=== PATIENT | male | born 1950 | race Caucasian/White ===

== ENCOUNTER 2017-02-03 13:08 | Emergency (ER) | payer OTHER, MEDICAID ==
[~2017-02-03] VITALS: Ht 172.7 cm; Wt 72.6 kg
[~2017-02-03 13:08] MED LIST: ALPR0.5T PO; AMLO5TAB2 PO; CARV25TA55 PO; CLON0.3T PO; DOXY100C41 PO; FURO20TA3 PO; GLYB5TAB8 PO; LEV500T GT; LEVO25TA6 PO; LISI-646 PO; OXY20CRT PO; POTA-167 PO; PREG100C PO; SIMV-8 PO
[2017-02-03] MEDS ORDERED: SODIUM CHLORIDE 0.9% 1,000 ML IV ONE (13:15)
[2017-02-03 13:52] LABS: Basophils # (auto) 0 uL; Basophils % (auto) 0.3 % (0.0-2.0); Eosinophils # (auto) 0.2 uL; Hematocrit 39.2 % (41.0-53.0); Lymphocytes # (auto) 0.9 uL; Lymphocytes % (auto) 18.8 % (10.0-50.0); Mean Corpuscular Hemoglobin 30.6 pg (28.0-32.0); Mean Corpuscular Hgb Conc. 35.6 g/dL (32.0-36.0); Mean Corpuscular Volume 85.9 fL (80.0-100.0); Mean Platelet Volume 8.4 fL (6.9-10.8); Monocytes # (auto) 0.4 uL; Monocytes % (auto) 8.3 % (0.0-12.0); Neutrophils # (auto) 3.3 uL; Neutrophils % (auto) 68.6 % (37.0-80.0); Nucleated Red Blood Cells % 0.2 %; Platelet Count (auto) 149 10^3/uL (140-450); Red Cell Distribution Width 14.8 % (11.8-14.3); White Blood Cell 4.8 10^3/uL (4.4-10.8)
[2017-02-03 14:07] LABS: INR 0.98 (0.9-1.15); Partial Thromboplastin Time 29.2 sec (22.64-33.71); Prothrombin Time 10.7 sec (9.37-12.3)
[2017-02-03 14:16] LABS: Albumin 4.2 g/dL (3.4-5.0); Alkaline Phosphatase 75 U/L (45-117); Anion Gap 7 (5-15); Aspartate Aminotransferase 16 U/L (15-37); BUN/Creatinine Ratio 14.3; Bilirubin, Total 0.9 mg/dL (0.2-1.0); Blood Urea Nitrogen 13 mg/dL (7-18); Calcium 9.3 mg/dL (8.5-10.1); Carbon Dioxide 25 mmol/L (21-32); Chloride 104 mmol/L (98-107); GFR African American 107 mL/min; GFR Non-African American 88 mL/min; Glucose 97 mg/dL (74-106); Potassium 4.1 mmol/L (3.5-5.1); Sodium 136 mmol/L (136-145); Total Protein 7.9 g/dL (6.4-8.2)
[2017-02-03 14:35] LABS: B-Type Natriuretic Peptide 60.88 pg/mL (0-100)
[2017-02-03 15:22] LABS: Temperature: 24.3 C (20.0-25.0)
[2017-02-03 16:19] VITALS: BP 134/94
[2017-02-03 16:43] LABS: Urine Bilirubin Negative (Negative); Urine Blood Negative /uL (Negative); Urine Color Yellow (Yellow); Urine Glucose Normal (Normal); Urine Ketone Negative (Negative); Urine Nitrite Negative (Negative); Urine RBC <1 /hpf (0 - 3); Urine Squamous Epithelial Cell FEW /hpf (<5); Urine Urobilinogen Normal (Negative)
== END 2017-02-03 18:05 | disposition home or self-care (01) ==
LOC: EDBD 13:08 → ER 13:08
DX: K40.90 Unilateral inguinal hernia, without obstruction or gangrene, not specified as recurrent (principal); E11.22 Type 2 diabetes mellitus with diabetic chronic kidney disease; N18.9 Chronic kidney disease, unspecified; I50.9 Heart failure, unspecified; Z95.0 Presence of cardiac pacemaker; Z88.0 Allergy status to penicillin; Z79.899 Other long term (current) drug therapy
CPT/HCPCS: 36415; 71010; 74176; 76870; 80053; 81001; 83880; 84484; 85025; 85610; 85730; 96360; 99285; J7030

== ENCOUNTER 2021-02-05 08:00 | Inpatient (IN) | payer OTHER, MEDICAID ==
[~2021-02-05] VITALS: Ht 182.9 cm; Wt 99.3 kg
[~2021-02-05 08:00] MED LIST changes: -ALPR0.5T PO; -AMLO5TAB2 PO; +DOXY-340 PO; -DOXY100C41 PO; -GLYB5TAB8 PO; -LISI-646 PO
[2021-02-05] MEDS ORDERED: BUPIVACAINE W/ EPINEPH 0.25% INJ 50ML MDV ONE (08:31)
[2021-02-05] MEDS ORDERED: TRANEXAMIC ACID 20 ML ONE (08:31)
[2021-02-05] MEDS ORDERED: MORPHINE SULF PF 2 MG/2 ML SYRG ONE (08:32)
[2021-02-05] MEDS ORDERED: KETOROLAC TROMETH 30 MG/ML 1ML VIAL ONE (08:33)
[2021-02-05] MEDS ORDERED: VANCOMYCIN HCL 1000 MG VL ONE ×2 (08:36→09:31)
[2021-02-05] MEDS ORDERED: ceFAZolin 1GM/50ML 100 ML IV ONE (08:42)
[2021-02-05] MEDS ORDERED: ACETAMINOPHEN IV 1000 MG/100ML (10MG/ML) IV ONE (08:45)
[2021-02-05] MEDS ORDERED: PREGABALIN 25 MG CAP PO ONE ×2 (08:45→09:00)
[2021-02-05] MEDS ORDERED: CELECOXIB 100 MG CAP PO ONE (08:45)
[2021-02-05] MEDS ORDERED: TETRACAINE 1% INJ 2 ML VIAL IJ ONE ×2 (08:59→09:25)
[2021-02-05] MEDS ORDERED: fentaNYL CITRATE 100 MCG/2 ML VL ONE (09:22)
[2021-02-05] MEDS ORDERED: MIDAZOLAM HCL 2MG/2ML 2ml VIAL (1mg/ml) ONE ×2 (09:22→10:07)
[2021-02-05] MEDS ORDERED: DexAMETHasone SOD PHOS 10MG/1ML VIAL INJ ONE (09:23)
[2021-02-05] MEDS ORDERED: PREGABALIN CAPSULE 75 MG CAP PO ONE (09:30)
[2021-02-05] MEDS ORDERED: VANCOMYCIN 1GM/250ML 250 ML IV ONE (09:45)
[2021-02-05] MEDS ORDERED: PROPOFOL 10 MG/ML 20 ML IV ONE (10:06)
[2021-02-05] MEDS ORDERED: KETAMINE HCL 10 ML ONE (10:09)
[2021-02-05] MEDS ORDERED: MIDAZOLAM HCL 2MG/2ML 2ml VIAL (1mg/ml) IV PRN (10:45)
[2021-02-05] MEDS ORDERED: ePHEDrine SULFATE 50 MG/ML AMP IV PRN (10:45)
[2021-02-05] MEDS ORDERED: MORPHINE SULFATE 4 MG/ML SYR/VIAL IV PRN (10:45)
[2021-02-05] MEDS ORDERED: ONDANSETRON HCL 4 MG/2 ML VIAL IV PRN ×2 (10:45→11:45)
[2021-02-05] MEDS ORDERED: NITROGLYCERIN 0.4 MG SL TAB SL PRN (11:45)
[2021-02-05] MEDS ORDERED: BISACODYL 5 MG EC TAB PO PRN (11:45)
[2021-02-05] MEDS ORDERED: oxyCODONE ER 20 MG TAB PO PRN (11:45)
[2021-02-05] MEDS ORDERED: MORPHINE SULFATE INJECTION 2 MG/ML SYRG IV PRN (11:45)
[2021-02-05] MEDS: LABETALOL HCL 5 MG/ML 4ML SYRINGE IV ONE ×2 (13:56→14:12)
[2021-02-05] MEDS ORDERED: oxyCODONE ER 10 MG TAB PO PRN (14:00)
[2021-02-05] MEDS: LABETALOL HCL 5 MG/ML 4ML SYRINGE IV PRN ×2 (14:21→14:30)
[2021-02-05] MEDS: HYDROmorphone HCL 2 MG/ML VL IV PRN ×2 (14:40→16:38)
[2021-02-05] MEDS: oxyCODONE ER 10 MG TAB PO SCH (15:12)
[2021-02-05] MEDS: LACTATED RINGER'S 1,000 ML IV SCH ×2 (15:55→18:38)
[2021-02-05 17:00] VITALS: BP 123/80
[2021-02-05 18:51] VITALS: BP 123/80
[2021-02-05 20:00] VITALS: BP 122/79
[2021-02-05 22:00] VITALS: BP 130/70
[2021-02-05] MEDS: SODIUM CHLOR 0.9% PF (SALINE LOCK) 10ML VIAL/SYR IV SCH (22:00)
[2021-02-05] MEDS: VANCOMYCIN 1GM/250ML 250 ML IV SCH (22:45)
[2021-02-05] MEDS: cloNIDine HCL 0.1 MG TAB PO SCH (22:45)
[2021-02-05] MEDS: DOCUSATE SOD 100 MG CAP PO SCH (22:45)
[2021-02-05] MEDS: ATORVASTATIN 20 MG TAB PO SCH (22:45)
[2021-02-05 23:00] VITALS: BP 124/83
[2021-02-06] VITALS (26 sets, daily range): BP systolic 110–172; BP diastolic 65–104
[2021-02-06] MEDS: OXYCODONE W/ ACETAMINOPHEN 5/325MG TABLET PO PRN (00:47)
[2021-02-06] MEDS: oxyCODONE ER 10 MG TAB PO SCH ×2 (04:00→15:00)
[2021-02-06] MEDS: SODIUM CHLOR 0.9% PF (SALINE LOCK) 10ML VIAL/SYR IV SCH ×3 (05:32→21:42)
[2021-02-06] MEDS: PREGABALIN 25 MG CAP PO SCH ×3 (05:36→21:43)
[2021-02-06] MEDS: LEVOTHYROXINE SODIUM 25 MCG TAB PO SCH (05:36)
[2021-02-06 06:53] LABS: Albumin 3.2 g/dL (3.4-5.0); Calcium 8.6 mg/dL (8.5-10.1); Potassium 3.9 mmol/L (3.5-5.1)
[2021-02-06 06:56] LABS: BUN/Creatinine Ratio 15.7; Bilirubin, Total 0.5 mg/dL (0.2-1.0); Total Protein 6.3 g/dL (6.4-8.2)
[2021-02-06] MEDS ORDERED: BUPIVACAINE W/ EPINEPH 0.25% INJ 50ML MDV ONE (06:58)
[2021-02-06 07:04] LABS: Hematocrit 28.3 % (41.0-53.0); Hemoglobin 10.1 g/dL (13.5-17.5)
[2021-02-06] MEDS: LACTATED RINGER'S 1,000 ML IV SCH ×2 (07:45→17:45)
[2021-02-06] MEDS: cefTRIAXone 1GM/50ML D5W 50 ML IV SCH (09:00)
[2021-02-06] MEDS: VANCOMYCIN 1GM/250ML 250 ML IV SCH (10:11)
[2021-02-06] MEDS: cloNIDine HCL 0.1 MG TAB PO SCH ×2 (10:12→21:42)
[2021-02-06] MEDS: FUROSEMIDE 20 MG TAB PO SCH (10:13)
[2021-02-06] MEDS: DOCUSATE SOD 100 MG CAP PO SCH ×2 (10:13→21:42)
[2021-02-06] MEDS: POTASSIUM CHL 10 Meq TABLET PO SCH (10:13)
[2021-02-06] MEDS: ENOXAPARIN SOD 40 MG/0.4 ML SYRINGE SC SCH (10:14)
[2021-02-06] MEDS: HYDROmorphone HCL 2 MG/ML VL IV PRN ×2 (13:51→20:20)
[2021-02-06] MEDS: ATORVASTATIN 20 MG TAB PO SCH (21:43)
[2021-02-07] MEDS: oxyCODONE ER 10 MG TAB PO SCH ×2 (03:04→15:14)
[2021-02-07] MEDS: LACTATED RINGER'S 1,000 ML IV SCH ×3 (03:45→23:38)
[2021-02-07 05:00] VITALS: BP 144/92
[2021-02-07] MEDS: PREGABALIN 25 MG CAP PO SCH ×3 (06:08→21:09)
[2021-02-07] MEDS: SODIUM CHLOR 0.9% PF (SALINE LOCK) 10ML VIAL/SYR IV SCH ×3 (06:08→21:08)
[2021-02-07] MEDS: HYDROmorphone HCL 2 MG/ML VL IV PRN ×2 (06:09→23:24)
[2021-02-07] MEDS: LEVOTHYROXINE SODIUM 25 MCG TAB PO SCH (06:09)
[2021-02-07 09:05] VITALS: BP 178/96
[2021-02-07] MEDS: cefTRIAXone 1GM/50ML D5W 50 ML IV SCH (09:08)
[2021-02-07 13:00] VITALS: BP 131/78
[2021-02-07 13:00] LABS: Hematocrit 29.4 % (41.0-53.0); Hemoglobin 9.9 g/dL (13.5-17.5)
[2021-02-07] MEDS: DOCUSATE SOD 100 MG CAP PO SCH ×2 (13:03→21:09)
[2021-02-07] MEDS: ENOXAPARIN SOD 40 MG/0.4 ML SYRINGE SC SCH (13:03)
[2021-02-07] MEDS: POTASSIUM CHL 10 Meq TABLET PO SCH (13:03)
[2021-02-07] MEDS: OXYCODONE W/ ACETAMINOPHEN 5/325MG TABLET PO PRN (13:23)
[2021-02-07] MEDS: FUROSEMIDE 20 MG TAB PO SCH (15:20)
[2021-02-07] MEDS: cloNIDine HCL 0.1 MG TAB PO SCH ×2 (15:20→21:09)
[2021-02-07 16:45] VITALS: BP 173/104
[2021-02-07] MEDS ORDERED: amLODIPine BESYLATE 5 MG TAB PO ONE (17:45)
[2021-02-07] MEDS: hydrALAZINE HCL 20 MG/ML VL IV PRN (18:13)
[2021-02-07] MEDS: ATORVASTATIN 20 MG TAB PO SCH (21:09)
[2021-02-07 22:00] VITALS: BP 89/49
[2021-02-08] MEDS: oxyCODONE ER 10 MG TAB PO SCH ×2 (01:53→15:21)
[2021-02-08] MEDS: HYDROmorphone HCL 2 MG/ML VL IV PRN ×2 (03:59→21:14)
[2021-02-08 05:00] VITALS: BP 148/85
[2021-02-08 05:38] LABS: Hematocrit 27.5 % (41.0-53.0); Hemoglobin 9.8 g/dL (13.5-17.5)
[2021-02-08] MEDS: LEVOTHYROXINE SODIUM 25 MCG TAB PO SCH (06:04)
[2021-02-08] MEDS: SODIUM CHLOR 0.9% PF (SALINE LOCK) 10ML VIAL/SYR IV SCH ×3 (06:04→20:54)
[2021-02-08] MEDS: PREGABALIN 25 MG CAP PO SCH ×3 (06:04→20:54)
[2021-02-08] MEDS: LACTATED RINGER'S 1,000 ML IV SCH ×2 (10:09→20:53)
[2021-02-08] MEDS: cefTRIAXone 1GM/50ML D5W 50 ML IV SCH (10:09)
[2021-02-08] MEDS: cloNIDine HCL 0.1 MG TAB PO SCH ×2 (10:09→21:02)
[2021-02-08] MEDS: FUROSEMIDE 40 MG TAB PO SCH (10:10)
[2021-02-08] MEDS: DOCUSATE SOD 100 MG CAP PO SCH ×2 (10:10→20:54)
[2021-02-08] MEDS: ENOXAPARIN SOD 40 MG/0.4 ML SYRINGE SC SCH (10:11)
[2021-02-08] MEDS: amLODIPine BESYLATE 5 MG TAB PO SCH (10:11)
[2021-02-08 11:53] VITALS: BP 132/80
[2021-02-08 13:00] VITALS: BP 138/72
[2021-02-08] MEDS: POTASSIUM CHL 10 Meq TABLET PO SCH (15:22)
[2021-02-08 17:00] VITALS: BP 129/90
[2021-02-08] MEDS: ATORVASTATIN 20 MG TAB PO SCH (20:54)
[2021-02-08 22:00] VITALS: BP 117/51
[2021-02-09] VITALS (7 sets, daily range): BP systolic 116–177; BP diastolic 67–97
[2021-02-09] MEDS: oxyCODONE ER 10 MG TAB PO SCH ×2 (02:00→15:00)
[2021-02-09] MEDS: PREGABALIN 25 MG CAP PO SCH ×3 (05:21→22:46)
[2021-02-09] MEDS: SODIUM CHLOR 0.9% PF (SALINE LOCK) 10ML VIAL/SYR IV SCH ×3 (05:21→22:44)
[2021-02-09] MEDS: HYDROmorphone HCL 2 MG/ML VL IV PRN ×3 (05:22→20:16)
[2021-02-09] MEDS: LACTATED RINGER'S 1,000 ML IV SCH (06:01)
[2021-02-09] MEDS: LEVOTHYROXINE SODIUM 25 MCG TAB PO SCH (06:42)
[2021-02-09] MEDS: cefTRIAXone 1GM/50ML D5W 50 ML IV SCH (08:45)
[2021-02-09] MEDS: cloNIDine HCL 0.1 MG TAB PO SCH ×2 (08:45→22:45)
[2021-02-09] MEDS: DOCUSATE SOD 100 MG CAP PO SCH ×2 (08:45→22:44)
[2021-02-09] MEDS: FUROSEMIDE 40 MG TAB PO SCH (08:46)
[2021-02-09] MEDS: amLODIPine BESYLATE 5 MG TAB PO SCH (08:46)
[2021-02-09] MEDS: POTASSIUM CHL 10 Meq TABLET PO SCH (08:46)
[2021-02-09] MEDS: ENOXAPARIN SOD 40 MG/0.4 ML SYRINGE SC SCH (08:46)
[2021-02-09] MEDS: hydrALAZINE HCL 20 MG/ML VL IV PRN ×2 (11:10→20:24)
[2021-02-09] MEDS: OXYCODONE W/ ACETAMINOPHEN 5/325MG TABLET PO PRN (18:32)
[2021-02-09] MEDS: ATORVASTATIN 20 MG TAB PO SCH (22:46)
[2021-02-10] MEDS: HYDROmorphone HCL 2 MG/ML VL IV PRN ×3 (00:03→08:30)
[2021-02-10] MEDS: oxyCODONE ER 10 MG TAB PO SCH ×2 (03:09→15:38)
[2021-02-10 05:00] VITALS: BP 134/76
[2021-02-10] MEDS: SODIUM CHLOR 0.9% PF (SALINE LOCK) 10ML VIAL/SYR IV SCH ×3 (05:15→22:03)
[2021-02-10] MEDS: PREGABALIN 25 MG CAP PO SCH ×3 (05:15→22:12)
[2021-02-10] MEDS: LEVOTHYROXINE SODIUM 25 MCG TAB PO SCH (06:19)
[2021-02-10 08:00] VITALS: BP 159/90
[2021-02-10] MEDS: hydrALAZINE HCL 20 MG/ML VL IV PRN (08:29)
[2021-02-10] MEDS: cloNIDine HCL 0.1 MG TAB PO SCH ×2 (10:18→22:11)
[2021-02-10] MEDS: cefTRIAXone 1GM/50ML D5W 50 ML IV SCH (10:18)
[2021-02-10] MEDS: DOCUSATE SOD 100 MG CAP PO SCH ×2 (10:18→22:10)
[2021-02-10] MEDS: FUROSEMIDE 40 MG TAB PO SCH (10:19)
[2021-02-10] MEDS: amLODIPine BESYLATE 5 MG TAB PO SCH (10:19)
[2021-02-10] MEDS: POTASSIUM CHL 10 Meq TABLET PO SCH (10:19)
[2021-02-10] MEDS: OXYCODONE W/ ACETAMINOPHEN 5/325MG TABLET PO PRN (10:20)
[2021-02-10] MEDS: ENOXAPARIN SOD 40 MG/0.4 ML SYRINGE SC SCH (10:20)
[2021-02-10 12:00] VITALS: BP 123/70
[2021-02-10 15:39] VITALS: BP 123/70
[2021-02-10 16:00] VITALS: BP 105/58
[2021-02-10 22:00] VITALS: BP 148/79
[2021-02-10] MEDS: ATORVASTATIN 20 MG TAB PO SCH (22:10)
[2021-02-11] MEDS: oxyCODONE ER 10 MG TAB PO SCH (02:32)
[2021-02-11 05:00] VITALS: BP 147/79
[2021-02-11] MEDS: SODIUM CHLOR 0.9% PF (SALINE LOCK) 10ML VIAL/SYR IV SCH (06:17)
[2021-02-11] MEDS: LEVOTHYROXINE SODIUM 25 MCG TAB PO SCH (06:17)
[2021-02-11] MEDS: PREGABALIN 25 MG CAP PO SCH (06:18)
[2021-02-11 09:00] VITALS: BP 145/81
[2021-02-11] MEDS: cefTRIAXone 1GM/50ML D5W 50 ML IV SCH (09:45)
[2021-02-11] MEDS: cloNIDine HCL 0.1 MG TAB PO SCH (09:46)
[2021-02-11] MEDS: DOCUSATE SOD 100 MG CAP PO SCH (09:46)
[2021-02-11] MEDS: ENOXAPARIN SOD 40 MG/0.4 ML SYRINGE SC SCH (09:46)
[2021-02-11] MEDS: POTASSIUM CHL 10 Meq TABLET PO SCH (09:46)
[2021-02-11] MEDS: FUROSEMIDE 40 MG TAB PO SCH (09:47)
[2021-02-11] MEDS: amLODIPine BESYLATE 5 MG TAB PO SCH (09:47)
[2021-02-11] MEDS: OXYCODONE W/ ACETAMINOPHEN 5/325MG TABLET PO PRN (09:47)
== END 2021-02-11 13:30 | DRG 470 ==
LOC: SUR 08:00 → TELE 11:33 → TELE-WESTW 17:55
PROVIDERS: ADMIT Orthopaedic Surgery Adult Reconstructive Orthopaedic Surgery; ATTEND Orthopaedic Surgery Adult Reconstructive Orthopaedic Surgery
PROC: 8E0YXBZ Computer Assisted Procedure of Lower Extremity (ICD-10-PCS; 2021-02-05)
PROC: 0SRB06Z Replacement of Left Hip Joint with Oxidized Zirconium on Polyethylene Synthetic Substitute, Open Approach (ICD-10-PCS; principal; 2021-02-05 09:40)
DX: M16.12 Unilateral primary osteoarthritis, left hip (principal); E44.1 Mild protein-calorie malnutrition; Z20.822 Contact with and (suspected) exposure to COVID-19; M21.70 Unequal limb length (acquired), unspecified site; M43.9 Deforming dorsopathy, unspecified; Z83.3 Family history of diabetes mellitus; Z82.49 Family history of ischemic heart disease and other diseases of the circulatory system; Z88.0 Allergy status to penicillin
CPT/HCPCS: 36415; 72170; 80053; 85014; 85018; 86850; 86900; 86901; 87426; 97116; 97163; 97530; G0378; J0131; J0690; J0696; J1100; J1885; J2250; J2704; J3490

== ENCOUNTER 2021-03-18 18:16 | Inpatient (IN) | payer OTHER, MEDICAID ==
[~2021-03-18] VITALS: Ht 170.2 cm; Wt 101.9 kg
[2021-03-18] MEDS ORDERED: MORPHINE SULFATE 4 MG/ML SYR/VIAL IV ONE ×2 (19:00→20:00)
[2021-03-18] MEDS ORDERED: SODIUM CHLORIDE 0.9% 500 ML IVB ONE (19:00)
[2021-03-18] MEDS ORDERED: ONDANSETRON HCL 4 MG/2 ML VIAL IV ONE (19:00)
[2021-03-18] MEDS ORDERED: HEPARIN 1,000 UNITS/ml 1ML VIAL IV ONE (20:00)
[2021-03-18] MEDS ORDERED: ASPirin 81 mg TAB PO ONE (20:00)
[2021-03-18] MEDS ORDERED: HEPARIN SODIUM (PORCINE) 5000 UNITS/ML 1ML VIAL ONE (20:09)
[2021-03-18] MEDS ORDERED: IODIXANOL 320MG/ML 100ML BTL IV ONE (20:14)
[2021-03-18] MEDS ORDERED: HEPARIN IN NS 1000Units/500mL 0 ML ONE (20:14)
[2021-03-18] MEDS ORDERED: LIDOCAINE 2%HCL (LOCAL ANESTH.) INJ 20ML MDV ONE (20:14)
[2021-03-18 20:39] LABS: Basophils # (auto) 0 10 ^3/uL (0-0.2); Basophils % (auto) 0.1 % (0.0-2.0); Eosinophils # (auto) 0 10 ^3/uL (0-0.8); Hematocrit 39.1 % (41.0-53.0); Hemoglobin 13.3 g/dL (13.5-17.5); Lymphocytes # (auto) 0.7 10 ^3/uL (0.4-5.4); Lymphocytes % (auto) 9.1 % (10.0-50.0); Mean Corpuscular Hemoglobin 28.2 pg (28.0-32.0); Mean Corpuscular Hgb Conc. 34.1 g/dL (32.0-36.0); Mean Corpuscular Volume 82.6 fL (80.0-100.0); Monocytes # (auto) 0.4 10 ^3/uL (0-1.3); Neutrophils # (auto) 6.3 10 ^3/uL (1.6-8.6); Neutrophils % (auto) 84.8 % (37.0-80.0); Nucleated Red Blood Cells % 0.1 %; Red Blood Cells 4.74 10^6/uL (4.5-5.90); Red Cell Distribution Width 15.3 % (11.8-14.3); White Blood Cell 7.5 10^3/uL (4.4-10.8)
[2021-03-18 20:49] LABS: Albumin 4.2 g/dL (3.4-5.0); Calcium 9.5 mg/dL (8.5-10.1); Magnesium 2.4 mg/dL (1.6-2.6); Potassium 3.4 mmol/L (3.5-5.1)
[2021-03-18] MEDS ORDERED: IOHEXOL 350 MG/ML 100ML IJ ONE (20:49)
[2021-03-18 20:55] LABS: BUN/Creatinine Ratio 13.8; Bilirubin, Total 0.9 mg/dL (0.2-1.0); Total Protein 9.1 g/dL (6.4-8.2)
[2021-03-19] VITALS (32 sets, daily range): BP systolic 96–203; BP diastolic 56–98
[2021-03-19] MEDS ORDERED: SODIUM CHLORIDE 0.9% 1,000 ML IV ONE
[2021-03-19] MEDS ORDERED: PIPERACILLIN-TAZO 4.5GM 100 ML IV ONE
[2021-03-19] MEDS ORDERED: COCAINE HCL 4% TOP SOL 4ML TOP ONE ×2 (00:27→00:30)
[2021-03-19] MEDS ORDERED: metroNIDAZOLE 500MG/100ML 100 ML IV ONE (00:45)
[2021-03-19] MEDS ORDERED: NITROGLYCERIN 0.4 MG SL TAB SL PRN (00:45)
[2021-03-19] MEDS ORDERED: levoFLOXacin 250MG 50 ML IV ONE (00:45)
[2021-03-19] MEDS ORDERED: SODIUM CHLORIDE 0.9% 1,000 ML IV SCH (00:45)
[2021-03-19] MEDS ORDERED: MORPHINE SULFATE INJECTION 2 MG/ML SYRG IV PRN (00:45)
[2021-03-19] MEDS ORDERED: ONDANSETRON HCL 4 MG/2 ML VIAL IV PRN ×2 (00:45→14:00)
[2021-03-19] MEDS: MORPHINE SULFATE 4 MG/ML SYR/VIAL IV PRN ×2 (03:12→08:48)
[2021-03-19] MEDS ORDERED: MORPHINE SULFATE 4 MG/ML SYR/VIAL IV ONE (04:45)
[2021-03-19] MEDS ORDERED: MORPHINE SULFATE INJECTION 2 MG/ML SYRG IV ONE (05:00)
[2021-03-19 07:27] LABS: Urine Bacteria NONE SEEN /hpf (None Seen); Urine Blood Negative /uL (Negative); Urine Specific Gravity 1.019 (1.001-1.035); Urine WBC 1 /hpf (0 - 3)
[2021-03-19] MEDS: metroNIDAZOLE 500MG/100ML 100 ML IV SCH ×2 (09:00→17:29)
[2021-03-19] MEDS ORDERED: PANTOPRAZOLE 40 MG/10 ML VIAL INJ IV SCH (10:00)
[2021-03-19] MEDS ORDERED: POVIDONE IODINE 10 % TOPICAL OINT 30GM TOP ONE (10:10)
[2021-03-19 10:13] LABS: Basophils # (auto) 0 10 ^3/uL (0-0.2); Basophils % (auto) 0.2 % (0.0-2.0); Eosinophils # (auto) 0 10 ^3/uL (0-0.8); Eosinophils % (auto) 0.1 % (0.0-7.0); Hematocrit 34.7 % (41.0-53.0); Hemoglobin 11.7 g/dL (13.5-17.5); Lymphocytes # (auto) 0.5 10 ^3/uL (0.4-5.4); Lymphocytes % (auto) 10.9 % (10.0-50.0); Mean Corpuscular Hemoglobin 28.1 pg (28.0-32.0); Mean Corpuscular Hgb Conc. 33.8 g/dL (32.0-36.0); Mean Corpuscular Volume 83.3 fL (80.0-100.0); Monocytes # (auto) 0.5 10 ^3/uL (0-1.3); Monocytes % (auto) 10.9 % (0.0-12.0); Neutrophils # (auto) 3.3 10 ^3/uL (1.6-8.6); Neutrophils % (auto) 77.9 % (37.0-80.0); Red Blood Cells 4.17 10^6/uL (4.5-5.90); Red Cell Distribution Width 15.3 % (11.8-14.3); White Blood Cell 4.2 10^3/uL (4.4-10.8)
[2021-03-19 10:19] LABS: INR 1.14 (0.9-1.15); Partial Thromboplastin Time 32.5 sec (23.6-33.0)
[2021-03-19] MEDS ORDERED: MIDAZOLAM HCL 2MG/2ML 2ml VIAL (1mg/ml) ONE ×2 (10:26→13:37)
[2021-03-19] MEDS ORDERED: fentaNYL CITRATE 100 MCG/2 ML VL ONE (10:26)
[2021-03-19] MEDS ORDERED: HYDROmorphone HCL 2 MG/ML VL ONE (10:26)
[2021-03-19] MEDS ORDERED: ROCURONIUM 10MG/ML 10ML VIAL IV ONE (10:27)
[2021-03-19] MEDS ORDERED: KETAMINE HCL 10 ML ONE (10:27)
[2021-03-19] MEDS ORDERED: fentaNYL CITRATE 5 ML ONE (10:28)
[2021-03-19] MEDS ORDERED: LIDOCAINE 2% (LOCAL ANESTH.) PF 5ml SDV ONE (10:29)
[2021-03-19] MEDS ORDERED: ETOMIDATE (2MG/ML) 20ML VIAL IV ONE (10:29)
[2021-03-19] MEDS ORDERED: GLYCOPYRROLATE 0.2 MG/ML 1ML VIAL ONE (10:29)
[2021-03-19] MEDS ORDERED: DexAMETHasone SOD PHOS 10MG/1ML VIAL INJ ONE (10:29)
[2021-03-19] MEDS ORDERED: ONDANSETRON HCL 4 MG/2 ML VIAL ONE (10:29)
[2021-03-19] MEDS ORDERED: PROPOFOL 10 MG/ML 20 ML IV ONE (10:29)
[2021-03-19] MEDS ORDERED: PHENYLEPHRINE HCL 10 MG/ML VL ONE (10:29)
[2021-03-19] MEDS ORDERED: ePHEDrine SULFATE 50 MG/ML AMP ONE (10:29)
[2021-03-19 10:36] LABS: Albumin 3.3 g/dL (3.4-5.0); BUN/Creatinine Ratio 22.9; Bilirubin, Total 0.7 mg/dL (0.2-1.0); Calcium 8.3 mg/dL (8.5-10.1); Total Protein 7.4 g/dL (6.4-8.2)
[2021-03-19 11:17] LABS: Potassium 2.5 mmol/L (3.5-5.1)
[2021-03-19] MEDS: POTASSIUM CHL 20MEQ/100ML 100 ML IV SCH ×2 (11:24→15:19)
[2021-03-19] MEDS ORDERED: levoFLOXacin 500MG 100 ML IV ONE (12:07)
[2021-03-19] MEDS ORDERED: MIDAZOLAM DRIP 50 mg/50mL 50 ML IV ONE (13:32)
[2021-03-19] MEDS ORDERED: PROPOFOL 100 ML IV ONE (14:49)
[2021-03-19] MEDS: MIDAZOLAM DRIP 50 mg/50mL 50 ML IV SCH ×2 (15:15→20:36)
[2021-03-19] MEDS: PROPOFOL 100 ML IV SCH (15:15)
[2021-03-19] MEDS: fentaNYL Drip 2500mCg/250mlNS 250 ML IV SCH ×2 (15:15→17:30)
[2021-03-19] MEDS: D5W/SOD CHL 0.45%/KCL 20MEQ 1,000 ML IV SCH ×2 (16:00→22:50)
[2021-03-20] VITALS (90 sets, daily range): BP systolic 113–198; BP diastolic 63–98
[2021-03-20] MEDS: metroNIDAZOLE 500MG/100ML 100 ML IV SCH ×3 (00:36→18:00)
[2021-03-20] MEDS: MIDAZOLAM DRIP 50 mg/50mL 50 ML IV SCH ×5 (03:01→22:41)
[2021-03-20 04:33] LABS: Basophils # (auto) 0 10 ^3/uL (0-0.2); Eosinophils # (auto) 0 10 ^3/uL (0-0.8); Hematocrit 31.8 % (41.0-53.0); Lymphocytes # (auto) 0.3 10 ^3/uL (0.4-5.4); Mean Corpuscular Hemoglobin 28.3 pg (28.0-32.0); Mean Corpuscular Hgb Conc. 34.4 g/dL (32.0-36.0); Mean Corpuscular Volume 82.2 fL (80.0-100.0); Monocytes # (auto) 0.3 10 ^3/uL (0-1.3); Neutrophils # (auto) 3.6 10 ^3/uL (1.6-8.6); Nucleated Red Blood Cells % 0.1 %; Red Blood Cells 3.88 10^6/uL (4.5-5.90); White Blood Cell 4.1 10^3/uL (4.4-10.8)
[2021-03-20 04:46] LABS: Albumin 2.4 g/dL (3.4-5.0); Calcium 7.5 mg/dL (8.5-10.1); Magnesium 2.3 mg/dL (1.6-2.6); Potassium 3.2 mmol/L (3.5-5.1)
[2021-03-20 04:50] LABS: BUN/Creatinine Ratio 26.8; Bilirubin, Total 0.6 mg/dL (0.2-1.0); Total Protein 5.5 g/dL (6.4-8.2)
[2021-03-20] MEDS ORDERED: POTASSIUM CHLORIDE 40 MEQ, LIDOCAINE 1% (LOCAL ANESTH.) 4 ML in SODIUM CHL 0.9% 250 ML IV ONE (08:00)
[2021-03-20] MEDS: levoFLOXacin 250MG 50 ML IV SCH (10:30)
[2021-03-20] MEDS: PANTOPRAZOLE 40 MG/10 ML VIAL INJ IV SCH (10:43)
[2021-03-20] MEDS: PROPOFOL 100 ML IV SCH ×3 (11:00→22:40)
[2021-03-20] MEDS: D5W/SOD CHL 0.45%/KCL 20MEQ 1,000 ML IV SCH ×3 (14:00→15:03)
[2021-03-20] MEDS: fentaNYL Drip 2500mCg/250mlNS 250 ML IV SCH (18:30)
[2021-03-20] MEDS: SODIUM CHLOR 0.9% PF (SALINE LOCK) 10ML VIAL/SYR IV SCH (22:00)
[2021-03-21] VITALS (103 sets, daily range): BP systolic 109–193; BP diastolic 58–106
[2021-03-21] MEDS: metroNIDAZOLE 500MG/100ML 100 ML IV SCH ×3 (01:30→17:45)
[2021-03-21] MEDS: MIDAZOLAM DRIP 50 mg/50mL 50 ML IV SCH ×2 (03:00→16:24)
[2021-03-21 04:43] LABS: Basophils # (auto) 0 10 ^3/uL (0-0.2); Basophils % (auto) 0.2 % (0.0-2.0); Eosinophils # (auto) 0 10 ^3/uL (0-0.8); Eosinophils % (auto) 0.1 % (0.0-7.0); Hematocrit 30.5 % (41.0-53.0); Hemoglobin 10.4 g/dL (13.5-17.5); Lymphocytes # (auto) 0.4 10 ^3/uL (0.4-5.4); Lymphocytes % (auto) 11.2 % (10.0-50.0); Mean Corpuscular Hemoglobin 28.1 pg (28.0-32.0); Mean Corpuscular Hgb Conc. 34.1 g/dL (32.0-36.0); Mean Corpuscular Volume 82.3 fL (80.0-100.0); Monocytes # (auto) 0.2 10 ^3/uL (0-1.3); Monocytes % (auto) 7.1 % (0.0-12.0); Neutrophils # (auto) 2.7 10 ^3/uL (1.6-8.6); Neutrophils % (auto) 81.4 % (37.0-80.0); Red Blood Cells 3.71 10^6/uL (4.5-5.90); Red Cell Distribution Width 15.2 % (11.8-14.3); White Blood Cell 3.4 10^3/uL (4.4-10.8)
[2021-03-21 05:01] LABS: Albumin 2.4 g/dL (3.4-5.0); Calcium 7.7 mg/dL (8.5-10.1); Potassium 3.1 mmol/L (3.5-5.1)
[2021-03-21 05:03] LABS: BUN/Creatinine Ratio 22.4
[2021-03-21 05:05] LABS: Bilirubin, Total 0.4 mg/dL (0.2-1.0); Total Protein 5.3 g/dL (6.4-8.2)
[2021-03-21] MEDS: PROPOFOL 100 ML IV SCH ×2 (05:36→16:23)
[2021-03-21] MEDS: D5W/SOD CHL 0.45%/KCL 20MEQ 1,000 ML IV SCH ×3 (07:46→17:46)
[2021-03-21] MEDS: fentaNYL Drip 2500mCg/250mlNS 250 ML IV SCH (07:47)
[2021-03-21] MEDS: levoFLOXacin 250MG 50 ML IV SCH (11:22)
[2021-03-21] MEDS: SODIUM CHLOR 0.9% PF (SALINE LOCK) 10ML VIAL/SYR IV SCH ×2 (11:22→22:00)
[2021-03-21] MEDS: PANTOPRAZOLE 40 MG/10 ML VIAL INJ IV SCH (11:22)
[2021-03-21] MEDS ORDERED: POTASSIUM CHL 20MEQ/100ML 100 ML IV ONE (11:30)
[2021-03-21] MEDS: hydrALAZINE HCL 20 MG/ML VL IV PRN ×2 (14:00→23:42)
[2021-03-21] MEDS ORDERED: METOPROLOL TARTRATE 1MG/1ML-5ML VIAL IV ONE (14:30)
[2021-03-21] MEDS ORDERED: D5W 5% 1,000 ML IV ONE (15:30)
[2021-03-22] VITALS (102 sets, daily range): BP systolic 99–198; BP diastolic 8–122
[2021-03-22] MEDS: metroNIDAZOLE 500MG/100ML 100 ML IV SCH ×3 (01:32→17:44)
[2021-03-22] MEDS: fentaNYL Drip 2500mCg/250mlNS 250 ML IV SCH ×2 (01:39→21:16)
[2021-03-22] MEDS: METOPROLOL TARTRATE 1MG/1ML-5ML VIAL IV PRN ×2 (01:51→08:00)
[2021-03-22 04:40] LABS: Basophils # (auto) 0 10 ^3/uL (0-0.2); Basophils % (auto) 0.2 % (0.0-2.0); Eosinophils # (auto) 0 10 ^3/uL (0-0.8); Hematocrit 30.7 % (41.0-53.0); Hemoglobin 10.5 g/dL (13.5-17.5); Lymphocytes # (auto) 0.4 10 ^3/uL (0.4-5.4); Lymphocytes % (auto) 9.9 % (10.0-50.0); Mean Corpuscular Hgb Conc. 34.1 g/dL (32.0-36.0); Mean Corpuscular Volume 82.1 fL (80.0-100.0); Monocytes # (auto) 0.3 10 ^3/uL (0-1.3); Monocytes % (auto) 8.1 % (0.0-12.0); Neutrophils # (auto) 3.2 10 ^3/uL (1.6-8.6); Neutrophils % (auto) 81.8 % (37.0-80.0); Nucleated Red Blood Cells % 0.1 %; Red Blood Cells 3.74 10^6/uL (4.5-5.90); Red Cell Distribution Width 14.8 % (11.8-14.3)
[2021-03-22 05:04] LABS: Albumin 2.4 g/dL (3.4-5.0); Calcium 7.5 mg/dL (8.5-10.1); Magnesium 2.5 mg/dL (1.6-2.6); Potassium 3.9 mmol/L (3.5-5.1)
[2021-03-22 05:10] LABS: BUN/Creatinine Ratio 22.2; Bilirubin, Total 0.3 mg/dL (0.2-1.0); Total Protein 5.4 g/dL (6.4-8.2)
[2021-03-22] MEDS: hydrALAZINE HCL 20 MG/ML VL IV PRN (05:29)
[2021-03-22] MEDS: PROPOFOL 100 ML IV SCH ×2 (08:52→12:43)
[2021-03-22] MEDS: PANTOPRAZOLE 40 MG/10 ML VIAL INJ IV SCH (09:44)
[2021-03-22] MEDS: SODIUM CHLOR 0.9% PF (SALINE LOCK) 10ML VIAL/SYR IV SCH ×2 (09:45→20:35)
[2021-03-22] MEDS: CARVEDILOL 12.5 MG TAB PO SCH (09:46)
[2021-03-22] MEDS: FUROSEMIDE 20 MG TAB PO SCH (09:46)
[2021-03-22] MEDS: cloNIDine HCL 0.1 MG TAB PO SCH (09:46)
[2021-03-22] MEDS: levoFLOXacin 250MG 50 ML IV SCH (11:46)
[2021-03-22] MEDS ORDERED: cefTRIAXone 1GM/50ML D5W 50 ML IV ONE (15:15)
[2021-03-22] MEDS: D5W 5% 1,000 ML IV SCH (16:05)
[2021-03-23] VITALS (80 sets, daily range): BP systolic 96–212; BP diastolic 44–115
[2021-03-23] MEDS: metroNIDAZOLE 500MG/100ML 100 ML IV SCH ×3 (01:00→09:04)
[2021-03-23 06:55] LABS: Hematocrit 32.5 % (41.0-53.0); Hemoglobin 10.9 g/dL (13.5-17.5); Mean Corpuscular Hemoglobin 28.1 pg (28.0-32.0); Mean Corpuscular Hgb Conc. 33.6 g/dL (32.0-36.0); Mean Corpuscular Volume 83.7 fL (80.0-100.0); Red Blood Cells 3.88 10^6/uL (4.5-5.90); Red Cell Distribution Width 15.1 % (11.8-14.3); White Blood Cell 5.7 10^3/uL (4.4-10.8)
[2021-03-23 07:03] LABS: Basophils % (manual) 0 (0.0-2.0); Blast Cells 0; Calcium 7.6 mg/dL (8.5-10.1); Metamyelocytes % 0; Myelocytes % 0; Potassium 3.2 mmol/L (3.5-5.1); Promyelocytes % 0; Reactive Lymphocytes 0
[2021-03-23 08:56] LABS: Band Neutrophils % (manual) 4; Eosinophils % (manual) 3 (0-7); Lymphocytes % (manual) 18 (10.0-50.0); Monocytes % (manual) 7 (0-12)
[2021-03-23] MEDS: MIDAZOLAM DRIP 50 mg/50mL 50 ML IV SCH (09:05)
[2021-03-23] MEDS: PROPOFOL 100 ML IV SCH (09:05)
[2021-03-23] MEDS: fentaNYL Drip 2500mCg/250mlNS 250 ML IV SCH (09:06)
[2021-03-23] MEDS: cefTRIAXone 1GM/50ML D5W 50 ML IV SCH (09:51)
[2021-03-23] MEDS: SODIUM CHLOR 0.9% PF (SALINE LOCK) 10ML VIAL/SYR IV SCH ×2 (10:47→20:41)
[2021-03-23] MEDS: PANTOPRAZOLE 40 MG/10 ML VIAL INJ IV SCH (10:47)
[2021-03-23] MEDS: cloNIDine HCL 0.1 MG TAB PO SCH (10:51)
[2021-03-23] MEDS: CARVEDILOL 12.5 MG TAB PO SCH (10:51)
[2021-03-23] MEDS: ENOXAPARIN SOD 30 MG/0.3 ML SYRINGE SC SCH (10:52)
[2021-03-23] MEDS: FUROSEMIDE 20 MG TAB PO SCH (10:52)
[2021-03-23] MEDS ORDERED: POTASSIUM EFFERVESENT TAB 25 MEQ GT ONE (11:15)
[2021-03-23] MEDS: D5W 5% 1,000 ML IV SCH (12:25)
[2021-03-23] MEDS: metroNIDAZOLE 500 MG TAB PO SCH ×2 (14:22→22:37)
[2021-03-23] MEDS: ACETYLCYSTEINE 10 %(100MG/ML) SOL 4ML NEB SCH ×2 (15:00→21:00)
[2021-03-23] MEDS: METOPROLOL TARTRATE 1MG/1ML-5ML VIAL IV PRN (15:00)
[2021-03-23] MEDS: hydrALAZINE HCL 20 MG/ML VL IV PRN (16:00)
[2021-03-23] MEDS: MORPHINE SULFATE 4 MG/ML SYR/VIAL IV PRN ×2 (16:00→20:42)
[2021-03-23] MEDS ORDERED: amLODIPine BESYLATE 5 MG TAB PO ONE (16:30)
[2021-03-23] MEDS ORDERED: hydrALAZINE HCL 20 MG/ML VL IV PRN (16:30)
[2021-03-23] MEDS: IPRATROPIUM BROM 0.5 MG/2.5ML INH SOL NEB SCH (18:00)
[2021-03-23] MEDS: ALBUTEROL SULF 2.5 MG/0.5ML(0.5%) NEB SOLN NEB SCH (18:00)
[2021-03-24] VITALS (20 sets, daily range): BP systolic 135–174; BP diastolic 75–100
[2021-03-24] MEDS: ACETYLCYSTEINE 10 %(100MG/ML) SOL 4ML NEB SCH ×4 (03:00→23:54)
[2021-03-24] MEDS: MORPHINE SULFATE 4 MG/ML SYR/VIAL IV PRN ×2 (04:29→20:45)
[2021-03-24 04:38] LABS: Hematocrit 38.7 % (41.0-53.0); Hemoglobin 12.9 g/dL (13.5-17.5); Mean Corpuscular Hemoglobin 27.5 pg (28.0-32.0); Mean Corpuscular Hgb Conc. 33.4 g/dL (32.0-36.0); Mean Corpuscular Volume 82.3 fL (80.0-100.0); Red Cell Distribution Width 14.9 % (11.8-14.3); White Blood Cell 8.8 10^3/uL (4.4-10.8)
[2021-03-24 04:55] LABS: BUN/Creatinine Ratio 13.9; Calcium 8.5 mg/dL (8.5-10.1)
[2021-03-24 05:13] LABS: Basophils % (manual) 0 (0.0-2.0); Blast Cells 0; Eosinophils % (manual) 0 (0-7); Promyelocytes % 0; Reactive Lymphocytes 0
[2021-03-24 05:45] LABS: Band Neutrophils % (manual) 2; Lymphocytes % (manual) 18 (10.0-50.0); Metamyelocytes % 1; Monocytes % (manual) 6 (0-12); Myelocytes % 1
[2021-03-24] MEDS: metroNIDAZOLE 500 MG TAB PO SCH ×3 (06:00→21:43)
[2021-03-24] MEDS: IPRATROPIUM BROM 0.5 MG/2.5ML INH SOL NEB SCH ×4 (06:00→23:54)
[2021-03-24] MEDS: ALBUTEROL SULF 2.5 MG/0.5ML(0.5%) NEB SOLN NEB SCH ×4 (06:00→23:54)
[2021-03-24] MEDS: D5W 5% 1,000 ML IV SCH (09:42)
[2021-03-24] MEDS: PANTOPRAZOLE 40 MG/10 ML VIAL INJ IV SCH (09:42)
[2021-03-24] MEDS: SODIUM CHLOR 0.9% PF (SALINE LOCK) 10ML VIAL/SYR IV SCH ×2 (09:42→23:56)
[2021-03-24] MEDS: cefTRIAXone 1GM/50ML D5W 50 ML IV SCH (09:42)
[2021-03-24] MEDS: CARVEDILOL 12.5 MG TAB PO SCH (09:43)
[2021-03-24] MEDS: cloNIDine HCL 0.1 MG TAB PO SCH (09:43)
[2021-03-24] MEDS: ENOXAPARIN SOD 30 MG/0.3 ML SYRINGE SC SCH (09:44)
[2021-03-24] MEDS: KETOROLAC TROMETH 30 MG/ML 1ML VIAL IV PRN ×3 (09:45→23:53)
[2021-03-24] MEDS ORDERED: FUROSEMIDE 20 MG TAB PO SCH (10:00)
[2021-03-24] MEDS: FUROSEMIDE 40 MG TAB PO SCH (10:54)
[2021-03-24] MEDS ORDERED: POTASSIUM CHL 20MEQ/100ML 100 ML IV ONE (11:15)
[2021-03-24] MEDS: POTASSIUM CHL 20MEQ/100ML 100 ML IV SCH ×2 (12:57→16:10)
[2021-03-24] MEDS: D5W/SOD CHL 0.45%/KCL 40MEQ 1,000 ML IV SCH ×2 (12:57→21:36)
[2021-03-24] MEDS: fentaNYL Drip 2500mCg/250mlNS 250 ML IV SCH (15:15)
[2021-03-24] MEDS: MIDAZOLAM DRIP 50 mg/50mL 50 ML IV SCH (15:15)
[2021-03-24] MEDS: PROPOFOL 100 ML IV SCH (15:15)
[2021-03-24] MEDS: METOPROLOL TARTRATE 1MG/1ML-5ML VIAL IV PRN (15:30)
[2021-03-25] MEDS: ACETYLCYSTEINE 10 %(100MG/ML) SOL 4ML NEB SCH ×5 (03:00→23:55)
[2021-03-25] MEDS: MORPHINE SULFATE 4 MG/ML SYR/VIAL IV PRN ×4 (04:50→20:40)
[2021-03-25 05:36] VITALS: BP 157/99
[2021-03-25] MEDS: ALBUTEROL SULF 2.5 MG/0.5ML(0.5%) NEB SOLN NEB SCH ×5 (05:44→23:55)
[2021-03-25] MEDS: IPRATROPIUM BROM 0.5 MG/2.5ML INH SOL NEB SCH ×5 (05:44→23:55)
[2021-03-25] MEDS: metroNIDAZOLE 500 MG TAB PO SCH ×3 (05:51→21:59)
[2021-03-25] MEDS: cefTRIAXone 1GM/50ML D5W 50 ML IV SCH (08:46)
[2021-03-25] MEDS: ENOXAPARIN SOD 30 MG/0.3 ML SYRINGE SC SCH (08:47)
[2021-03-25] MEDS: PANTOPRAZOLE 40 MG/10 ML VIAL INJ IV SCH (08:47)
[2021-03-25] MEDS: CARVEDILOL 12.5 MG TAB PO SCH (08:48)
[2021-03-25] MEDS: cloNIDine HCL 0.1 MG TAB PO SCH (08:48)
[2021-03-25] MEDS: FUROSEMIDE 40 MG TAB PO SCH (08:49)
[2021-03-25 09:00] VITALS: BP 189/104
[2021-03-25] MEDS ORDERED: hydrALAZINE HCL 20 MG/ML VL IV PRN (11:00)
[2021-03-25] MEDS: SODIUM CHLOR 0.9% PF (SALINE LOCK) 10ML VIAL/SYR IV SCH ×2 (11:39→21:59)
[2021-03-25 12:00] VITALS: BP 186/98
[2021-03-25] MEDS ORDERED: amLODIPine BESYLATE 5 MG TAB PO ONE (15:00)
[2021-03-25 16:00] VITALS: BP 150/105
[2021-03-25 22:00] VITALS: BP 137/77
[2021-03-25] MEDS ORDERED: MIRTAZAPINE 30 MG TAB PO SCH (22:00)
[2021-03-25 22:29] LABS: Albumin 3.3 g/dL (3.4-5.0); BUN/Creatinine Ratio 18.2; Calcium 8.4 mg/dL (8.5-10.1); Potassium 3.2 mmol/L (3.5-5.1)
[2021-03-25 22:31] LABS: Bilirubin, Total 0.4 mg/dL (0.2-1.0); Total Protein 6.2 g/dL (6.4-8.2)
[2021-03-26] MEDS: D5W/SOD CHL 0.45%/KCL 40MEQ 1,000 ML IV SCH (00:35)
[2021-03-26 05:00] VITALS: BP 132/90
[2021-03-26] MEDS: metroNIDAZOLE 500 MG TAB PO SCH ×2 (05:52→15:11)
[2021-03-26] MEDS: MORPHINE SULFATE 4 MG/ML SYR/VIAL IV PRN ×3 (05:53→15:47)
[2021-03-26] MEDS: IPRATROPIUM BROM 0.5 MG/2.5ML INH SOL NEB SCH ×3 (06:27→18:00)
[2021-03-26] MEDS: ALBUTEROL SULF 2.5 MG/0.5ML(0.5%) NEB SOLN NEB SCH ×3 (06:28→18:00)
[2021-03-26] MEDS: ACETYLCYSTEINE 10 %(100MG/ML) SOL 4ML NEB SCH ×2 (06:28→17:00)
[2021-03-26 09:00] VITALS: BP 129/87
[2021-03-26] MEDS: cefTRIAXone 1GM/50ML D5W 50 ML IV SCH (09:43)
[2021-03-26] MEDS: PANTOPRAZOLE 40 MG/10 ML VIAL INJ IV SCH (09:44)
[2021-03-26] MEDS: ENOXAPARIN SOD 30 MG/0.3 ML SYRINGE SC SCH (09:44)
[2021-03-26] MEDS: SODIUM CHLOR 0.9% PF (SALINE LOCK) 10ML VIAL/SYR IV SCH (09:46)
[2021-03-26] MEDS: CARVEDILOL 12.5 MG TAB PO SCH (09:46)
[2021-03-26] MEDS: FUROSEMIDE 40 MG TAB PO SCH (09:46)
[2021-03-26] MEDS ORDERED: amLODIPine BESYLATE 5 MG TAB PO SCH (10:00)
[2021-03-26] MEDS: cloNIDine HCL 0.1 MG TAB PO SCH (11:54)
[2021-03-26 13:00] VITALS: BP 162/98
[2021-03-26 16:50] VITALS: BP 157/98
== END 2021-03-26 19:52 | disposition left against medical advice (07) | DRG 335 ==
LOC: EDBD 18:16 → ER 18:19 → OVERFLOW 03-19 04:28 → ICU WEST 03-19 14:05 → TELE-WESTW 03-24 16:59
PROVIDERS: ADMIT Nurse Practitioner; ATTEND Internal Medicine
PROC: 5A1945Z Respiratory Ventilation, 24-96 Consecutive Hours (ICD-10-PCS; 2021-03-19)
PROC: 0BH17EZ Insertion of Endotracheal Airway into Trachea, Via Natural or Artificial Opening (ICD-10-PCS; 2021-03-19)
PROC: 0DN80ZZ Release Small Intestine, Open Approach (ICD-10-PCS; principal; 2021-03-19 12:13)
DX: K56.609 Unspecified intestinal obstruction, unspecified as to partial versus complete obstruction (principal); N17.0 Acute kidney failure with tubular necrosis; J96.01 Acute respiratory failure with hypoxia; K63.1 Perforation of intestine (nontraumatic); J18.9 Pneumonia, unspecified organism; J98.2 Interstitial emphysema; E88.09 Other disorders of plasma-protein metabolism, not elsewhere classified; I11.0 Hypertensive heart disease with heart failure; I50.9 Heart failure, unspecified; I16.0 Hypertensive urgency; E78.5 Hyperlipidemia, unspecified; E87.6 Hypokalemia; Z53.29 Procedure and treatment not carried out because of patient's decision for other reasons; D64.9 Anemia, unspecified; F43.23 Adjustment disorder with mixed anxiety and depressed mood; Z80.9 Family history of malignant neoplasm, unspecified; Z82.49 Family history of ischemic heart disease and other diseases of the circulatory system; Z95.0 Presence of cardiac pacemaker; Z85.810 Personal history of malignant neoplasm of tongue; Z83.3 Family history of diabetes mellitus; Z88.0 Allergy status to penicillin
CPT/HCPCS: 36415; 36569; 36600; 70450; 70490; 71045; 71250; 74176; 80048; 80053; 81001; 82150; 82805; 83605; 83690; 83735; 83880; 84484; 85007; 85025; 85027; 85610; 85730; 86850; 86900; 86901; 87070; 87077; 87081; 87186; 87205; 87426; 93005; 93306; 94003; 94640; 96361; 96365; 96366; 96368; 96375; 96376; 97110; 97116; 97163; 97530; 99291; C9113; G0378; J0696; J1100; J1885; J1956; J2001; J2250; J2405; J2543; J2704; J3480; J3490; Q9967